=== PATIENT | female | born 1965 | race Native Hawaiian/Other Pacific Islander ===

== ENCOUNTER → 2017-02-01 | Outpatient (CLI) | payer OTHER ==
[2017-02-01 08:11] LABS: ABSOLUTE NEUTROPHILS 3.7 thou/uL (1.4-8.2); BASOPHILS 0.9 % (0.0-2.0); EOSINOPHILS 1.7 % (0.0-3.0); HEMATOCRIT 40.1 % (37.0-47.0); HEMOGLOBIN 13.7 gm/dL (12.0-15.0); LYMPHOCYTES 30.1 % (24.0-44.0); MCH 29.5 pg (26.0-34.0); MCHC 34.2 g/dL (28.0-37.0); MCV 86.3 fL (80.0-100.0); MONOCYTES 7.6 % (1.0-8.0); PLATELET COUNT 210 thou/uL (150-400); POLYS 59.7 % (36.0-66.0); RBC 4.65 mil/uL (4.20-5.00); RDW 12.6 % (10.5-14.5); WBC 6.2 thou/uL (4.0-11.0)
[2017-02-01 08:14] LABS: URINE BILIRUBIN NEGATIVE (Negative); URINE BLOOD TRACE (Negative); URINE COLOR YELLOW; URINE GLUCOSE-RANDOM* NEGATIVE (Negative); URINE KETONES NEGATIVE (Negative); URINE NITRITE NEGATIVE (Negative); URINE PROTEIN (DIPSTICK) NEGATIVE (Negative); URINE SPECIFIC GRAVITY 1.015 (1.003-1.035); URINE UROBILINOGEN 0.2 E.U./dl (0.2-1.0)
[2017-02-01 08:18] LABS: MANUAL DIFF NO
[2017-02-01 08:20] LABS: CALCIUM 9.3 mg/dL (8.5-10.1)
[2017-02-01 08:27] LABS: ALBUMIN 4.1 g/dL (3.4-5.0); ALKALINE PHOSPHATASE 63 U/L (46-116); ANION GAP 7 mmol/L (7-16); BUN 19 mg/dL (7-18); CHLORIDE 103 mmol/L (98-107); CHOLESTEROL 184 mg/dL (<200); CO2 31 mmol/L (21-32); CREATININE 0.9 mg/dL (0.6-1.0); GLUCOSE 88 mg/dL (74-106); HDL CHOLESTEROL 68 mg/dL (>40); LDL CHOLESTEROL 106 mg/dL (<100); SGOT 17 U/L (15-37); SGPT 25 U/L (30-65); SODIUM 141 mmol/L (136-145); TC:HDL 2.7 Ratio (Not establshd); TOTAL BILIRUBIN 1.3 mg/dL (<0.1-1.0); TOTAL PROTEIN 7.8 g/dL (6.4-8.2); TRIGLYCERIDE 52 mg/dL (<150); VLDL 10 mg/dL (<40)
== END ==
LOC: LABMALL 07:26
DX: Z13.6 Encounter for screening for cardiovascular disorders (principal); Z13.29 Encounter for screening for other suspected endocrine disorder; E78.5 Hyperlipidemia, unspecified

== ENCOUNTER → 2017-11-12 | Outpatient (CLI) | payer OTHER ==
[~2017-11-12] VITALS: Ht 167.6 cm; Wt 60.8 kg
[~2017-11-12] MED LIST: ALLERGY10 MG PO; BIOTIN1000 MCG PO; CRESTOR5 MG PO; FISH OIL 1,001000 M2 PO; LEXAPRO5 MG PO; VITAMIN D1000 UNI1 PO; VITAMIN E400 UNIT PO; XANAX 0.5 MG0.5 MG PO; [UNRECOGNIZED DRUG - CODE] SUBLING
--- NOTE | ~2017-11-12 | P ---
[facility] [place] [address] PROCEDURE REPORT Name: ALFREDO POLO Room #: REG [facility]#: [id number] Admission: 11/12/17 Attend Phys: Nathaniel Jenkins MD Discharge: Date of : 67 Report #: [id number] THIS REPORT FOR: //name// CC: Nathaniel JUNE Physician staff PREOPERATIVE DIAGNOSIS: Average risk screening colonoscopy. POSTOPERATIVE DIAGNOSIS: Normal average risk screening colonoscopy. MEDICATIONS: Deep sedation with propofol per anesthesia. SPECIMEN: None. ESTIMATED BLOOD LOSS: None. PROCEDURE: Colonoscopy to cecum and terminal ileum. FINDINGS: Prior to propofol sedation, the procedure of colonoscopy discussed with the patient as well as potential risks, benefits, and complications. She indicates she understands and desires to proceed. With the patient in left lateral decubitus position, digital examination was completed, which revealed no abnormalities. Subsequently, the ModusP video colonoscope was introduced in the rectum and advanced under direct vision to the cecum. Done with minimal difficulty. The cecum was identified by the ileocecal valve and the appendiceal orifice. I was able to visualize the distal segment of the distal terminal ileum, which was unremarkable. At that point, the scope was slowly withdrawn and careful circumferential views were obtained including retroflexion of the scope in the ascending colon. Upon slow withdrawal of the scope, the prep was excellent. Mucosa was within normal limits, normal vascular pattern, and normal light reflex. As we withdrew the scope, no mucosal abnormalities were seen. No polyps were seen on this examination. The scope was withdrawn through the entire colon. No polyps were seen. The scope was withdrawn in the rectum and no abnormalities were seen. Upon retroflexion, no abnormalities were seen. Scope was withdrawn. The patient tolerated the procedure well. CONDITION OF THE PATIENT UPON DISCHARGE: Following procedure, the patient drowsy, arousable, and conversant and will be discharged to home when fully ambulatory. INSTRUCTIONS TO THE PATIENT AND FAMILY AT THE TIME OF DISCHARGE: No neoplastic lesions were seen. This is a negative average risk screening colonoscopy. It would be recommended the patient return in 10 years for average risk screening colonoscopy or seek evaluation if she should develop specific symptoms that [facility] [address] [place] [address] PROCEDURE REPORT Name: ALFREDO POLO Room #: REG [facility].#: [id number] Admission: 11/12/17 Attend Phys: Nathaniel Jenkins MD Discharge: Date of : 67 Report #: [id number] would warrant a colonoscopy at that time. This is the patient's first colonoscopy. Withdrawal time from the cecum was 14 minutes and 6 seconds. <ELECTRONICALLY SIGNED> By: Nathaniel Jenkins MD 11/12/17 [id number] Nathaniel Jenkins MD /nt
== END | disposition home or self-care (01) ==
LOC: GI 06:59
DX: Z12.11 Encounter for screening for malignant neoplasm of colon (principal); E78.5 Hyperlipidemia, unspecified; F32.89 Other specified depressive episodes; F41.8 Other specified anxiety disorders; Z90.710 Acquired absence of both cervix and uterus; Z98.890 Other specified postprocedural states; Z79.899 Other long term (current) drug therapy
CPT/HCPCS: 62110; 62900

== ENCOUNTER → 2018-07-29 | Outpatient (CLI) | payer OTHER | LOC: ULTRA 07:05 | DX: D17.71 Benign lipomatous neoplasm of kidney (principal); D18.00 Hemangioma unspecified site ==

== ENCOUNTER → 2018-09-04 | Outpatient (CLI) | payer OTHER | LOC: NUC 07:20 | DX: R14.0 Abdominal distension (gaseous) (principal) ==

== ENCOUNTER → 2020-11-30 | Outpatient (CLI) | payer OTHER ==
[2020-11-30 10:53] LABS: ABSOLUTE NEUTROPHILS 4.8 thou/uL (1.4-8.2); BASOPHILS 0.7 % (0.0-2.0); EOSINOPHILS 1.3 % (0.0-3.0); HEMOGLOBIN 14.2 gm/dL (12.0-15.0); LYMPHOCYTES 20.2 % (24.0-44.0); MCH 29.9 pg (26.0-34.0); MCHC 33.7 g/dL (28.0-37.0); MCV 88.6 fL (80.0-100.0); MONOCYTES 5.2 % (1.0-8.0); PLATELET COUNT 234 thou/uL (150-400); POLYS 72.6 % (36.0-66.0); RBC 4.75 mil/uL (4.20-5.00); RDW 12.9 % (10.5-14.5); WBC 6.7 thou/uL (4.0-11.0)
[2020-11-30 11:11] LABS: ALBUMIN 4.2 g/dL (3.4-5.0); ANION GAP 11 mmol/L (7-16); BUN 13 mg/dL (7-18); CALCIUM 9.4 mg/dL (8.5-10.1); CHLORIDE 104 mmol/L (98-107); CHOLESTEROL 239 mg/dL (<200); CO2 26 mmol/L (21-32); CREATININE 0.9 mg/dL (0.6-1.0); GLUCOSE 100 mg/dL (74-106); HDL CHOLESTEROL 69 mg/dL (>40); LDL CHOLESTEROL 154 mg/dL (<100); POTASSIUM 4.1 mmol/L (3.5-5.1); SGOT 12 U/L (15-37); SGPT 20 U/L (30-65); SODIUM 141 mmol/L (136-145); TC:HDL 3.5 Ratio (Not establshd); TOTAL PROTEIN 7.8 g/dL (6.4-8.2); TRIGLYCERIDE 84 mg/dL (<150); VLDL 17 mg/dL (<40)
[2020-12-01 15:08] LABS: 25-HYDROXY TOTAL 28.1 ng/mL (30.0-100.0)
[2020-12-02 13:09] LABS: FREE TESTOSTERONE 2.2 pg/mL (0.0-4.2)
== END ==
LOC: LAB 09:55 → CAT 09:55
PROVIDERS: ATTEND Nurse Practitioner
DX: E78.2 Mixed hyperlipidemia (principal); N95.1 Menopausal and female climacteric states; R10.11 Right upper quadrant pain; R10.2 Pelvic and perineal pain

== ENCOUNTER → 2020-12-15 | Outpatient (CLI) | payer OTHER | LOC: LAB 11:47 | PROVIDERS: ATTEND Nurse Practitioner | DX: N95.1 Menopausal and female climacteric states (principal) ==

== ENCOUNTER 2021-02-14 10:07 | Emergency (ER) | payer OTHER ==
[~2021-02-14] VITALS: Ht 165.1 cm; Wt 59.0 kg
== END 2021-02-14 11:38 | disposition home or self-care (01) ==
LOC: ER 10:07
PROVIDERS: Emergency Medicine
DX: U07.1 COVID-19 (principal); Z01.84 Encounter for antibody response examination; F32.9 Major depressive disorder, single episode, unspecified; F41.9 Anxiety disorder, unspecified; E78.5 Hyperlipidemia, unspecified; Z79.899 Other long term (current) drug therapy; Z90.710 Acquired absence of both cervix and uterus; Z90.89 Acquired absence of other organs